=== PATIENT | female | born 1965 | race Caucasian/White ===

== ENCOUNTER 2017-11-08 12:44 | Inpatient (IN) | payer SELFPAY ==
[~2017-11-08] VITALS: Ht 152.4 cm; Wt 75.7 kg
[2017-11-08] MEDS ORDERED: METO25TA6 PO (12:52)
[2017-11-08] MEDS ORDERED: ACETAMINOPHEN 325MG TABLET PO STA (13:08)
[2017-11-08] MEDS ORDERED: ONDANSETRON HCL 4MG/2ML VIAL IV STA (13:08)
[2017-11-08] MEDS ORDERED: KETOROLAC 30MG/ML VIAL IV STA (13:08)
[2017-11-08] MEDS ORDERED: SODIUM CHLORIDE 0.9% 1000ML BAG (SEPSIS BOLUS) IV ONE (13:15)
[2017-11-08 13:53] LABS: BASOPHILS % 0.5 % (0.0-2.0); CHLORIDE 108 mEq/L (98-107); EOSINOPHILS % 2.4 % (0.0-5.0); HEMATOCRIT. 39.8 % (36.0-48.0); HEMOGLOBIN. 13.7 g/dL (12.0-16.0); LYMPHOCYTES % 37.3 % (20.0-50.0); MEAN CORPUSCULAR HEMOGLOBIN 30.4 pg (28.0-32.0); MEAN CORPUSCULAR VOLUME 88.4 fL (81.0-99.0); MEAN PLATELET VOLUME 10.4 fl (7.4-10.4); MONOCYTES % 5.2 % (2.0-8.0); NEUTROPHILS % 54.6 % (40.0-76.0); PLATELET 203 x1000/uL (130-400); RED BLOOD CELL COUNT 4.51 mill/uL (4.2-5.4); RED CELL DISTRIBUTION WIDTH 12.5 % (11.6-14.6)
[2017-11-08 13:59] LABS: PROTHROMBIN TIME 10.1 sec (9.4-11.6)
[2017-11-08] MEDS ORDERED: MORPHINE SULFATE 4 MG/ML CPJ (NOT FOR IM USE) IV ONE (14:30)
[2017-11-08 17:32] LABS: CLARITY URINE CLEAR (CLEAR); COLOR URINE YELLOW (YELLOW); KETONES URINE NEGATIVE (NEGATIVE); LEUKOCYTE ESTERASE URINE 2+ (NEGATIVE); NITRITE URINE NEGATIVE (NEGATIVE); OCCULT BLOOD URINE NEGATIVE (NEGATIVE); PH URINE 7.5 (4.5-8.0); PROTEIN URINE NEGATIVE (NEGATIVE); SPECIFIC GRAVITY URINE 1.005 (1.005-1.030); UROBILINOGEN URINE 0.2 E.U./dL (0.2-1.0)
[2017-11-08] MEDS ORDERED: CEFTRIAXONE 1 G PREMIX 50 ML IV ONE (17:45)
[2017-11-08] MEDS ORDERED: DEXAMETHASONE 10 MG/ML VIAL IV ONE (18:30)
[2017-11-08] MEDS ORDERED: CEFTRIAXONE 2 G PREMIX 50 ML IV ONE (18:30)
[2017-11-08] MEDS ORDERED: VANCOMYCIN 1 G PREMIX 200 ML IV SCH (18:30)
[2017-11-09] VITALS: BP 125/77
[2017-11-09] MEDS ORDERED: SODIUM CHLORIDE 0.45% 1,000 ML IV SCH (00:29)
[2017-11-09] MEDS ORDERED: HYDROCODONE/ACETAMINOPHEN 5/325MG TABLET PO PRN (00:30)
[2017-11-09] MEDS ORDERED: ACETAMINOPHEN 325MG TABLET PO PRN (00:30)
[2017-11-09] MEDS ORDERED: ONDANSETRON HCL 4MG/2ML VIAL IV PRN (00:30)
[2017-11-09] MEDS ORDERED: CLONIDINE 0.1MG TABLET PO PRN (00:30)
[2017-11-09] MEDS ORDERED: DOCUSATE SODIUM 100MG CAPSULE PO PRN (00:30)
[2017-11-09] MEDS: AMLODIPINE 10MG TABLET PO SCH ×2 (00:30→08:47)
[2017-11-09 01:09] VITALS: BP 125/77
[2017-11-09 04:00] VITALS: BP 105/68
[2017-11-09 08:00] VITALS: BP 101/56
[2017-11-09] MEDS ORDERED: ASPIRIN 81MG EC TABLET PO SCH (09:00)
[2017-11-09 10:47] VITALS: BP 101/56
== END 2017-11-09 11:55 | disposition home or self-care (01) | DRG 51 ==
LOC: ER 15:19 → 6EST 18:28 → ENRESERV 22:14
PROVIDERS: ADMIT Hospitalist; ATTEND Hospitalist
PROC: 009U3ZX Drainage of Spinal Canal, Percutaneous Approach, Diagnostic (ICD-10-PCS; principal; 2017-11-08)
PROC: B01B1ZZ Fluoroscopy of Spinal Cord using Low Osmolar Contrast (ICD-10-PCS; 2017-11-08)
DX: A87.9 Viral meningitis, unspecified (principal); I10 Essential (primary) hypertension
CPT/HCPCS: 36415; 62270; 70450; 71045; 72131; 77003; 80053; 81003; 83605; 85025; 85610; 87040; 87070; 87205; 89050; 93005; 93970; 96361; 96365; 96375; 99285; J0696; J1100; J1885; J2405; J3370; J7030